=== PATIENT | male | born 1950 | race American Indian/Alaskan Native ===

== ENCOUNTER 2016-10-16 12:42 | Emergency (ER) | payer MEDICARE ==
--- NOTE | 2016-10-16 13:30 | Emergency Department Report ---
Chief Complaint: Abdominal Pain Stated Complaint: RIGHT FLANK PAIN Time Seen by Provider: 10/16/16 13:15 - HPI History of Present Illness: Patient is a 66-year-old male who was sent from [place] urgent [facility] to be evaluated for right-sided flank pain 1 week. Patient says about a week ago started experiencing right-sided flank pain, nonradiating, 6 out of 10 in intensity. Patient states mild to moderate right-sided quadrant abdominal pain. Patient denies fever/chills/nausea/vomiting/hematuria/dysuria/penile discharge. - ROS Review of Systems: As noted in HPI - Exam Vital Signs: Vital Signs 10/16/16 12:47 Temperature 97.6 F Pulse Rate 74 Respiratory 20 Rate Blood Pressure 154/92 O2 Sat by Pulse 100 Oximetry Physical Exam: GENERAL: Alert and oriented x3, no apparent distress, Normal Gait, atraumatic. HEAD: Head is normocephalic and a-traumatic. LUNGS: Symetrical with respiration, No wheezing, no rales or crackles, CTAB. HEART: S1, S2 present, regular rate and rhythm without murmur, no rubs, no gallops. ABDOMEN: No organomegaly was noted,Positive bowel sounds, soft, and non- distended. . Mild tenderness to palpation of the right middle to lower quadrant. Nontender to palpation on all other Quadrants, Rght sided CVA tenderness. SKIN: Warm and dry, No lesions, No ulceration or induration present. MSE screening note: Focused history and physical exam performed. Due to findings the following was ordered: ED Medical Decision Making - Medical Decision Making Labs ordered. CT abdomen ordered. Patient is in no acute or respiratory distress. Vital signs are stable. Patient waiting to be seen by ED physician. ED Disposition for MSE Condition: Stable
[2016-10-16 14:04] LABS: Basophils % (Auto) 0.1 % (0.0-1.8); Eosinophils % (Auto) 0.4 % (0.0-4.3); Hematocrit 37.4 % (35.5-45.6); Hemoglobin 12.1 gm/dl (11.8-15.2); Mean Corpuscular HGB Conc 32 % (32-34); Mean Corpuscular Hemoglobin 28 pg (28-32); Mean Corpuscular Volume 87 fl (84-94); Platelet Count 276 K/mm3 (140-440); Red Blood Count 4.32 M/mm3 (3.65-5.03); Red Cell Distribution Width 17.4 % (13.2-15.2); White Blood Count 5.8 K/mm3 (4.5-11.0)
[2016-10-16 14:13] LABS: Bilirubin,Urine NEG (Negative); Blood,Urine SM (Negative); Ketones,Urine NEG (Negative); Leukocyte Esterase,Urine NEG (Negative); Mucus,Urine FEW /HPF; Nitrite,Urine NEG (Negative); Urobilinogen,Urine < 2.0 mg/dL (<2.0)
[2016-10-16 14:18] LABS: Alanine Aminotransferase 9 units/L (7-56); Albumin 3.9 g/dL (3.9-5); Albumin/Globulin Ratio 0.8 %; Alkaline Phosphatase 76 units/L (35-129); Anion Gap 20 mmol/L; Bilirubin,Total 0.3 mg/dL (0.1-1.2); Blood Urea Nitrogen 8 mg/dL (9-20); Calcium 9.3 mg/dL (8.4-10.2); Carbon Dioxide 24 mmol/L (22-30); Chloride 100.1 mmol/L (98-107); Glucose 108 mg/dL (75-100); Potassium 4.2 mmol/L (3.6-5.0); Sodium 140 mmol/L (137-145); Total Protein 8.6 g/dL (6.3-8.2)
[2016-10-16 14:19] LABS: Amylase 55 units/L (27-131); Lipase 33 units/L (13-60)
--- NOTE | 2016-10-16 14:19 | Cat Scan Report ---
FINAL REPORT EXAM: CT ABDOMEN PELVIS WO CON HISTORY: abd/flank pain Right sided TECHNIQUE: CT examination of the ABDOMEN without contrast CT exanimation of the PELVIS without contrast PRIORS: None. FINDINGS: Patchy nonspecific parenchymal opacity is noted in the medial aspect of the right lower lobe. This may be scar or infiltrate. Nonspecific slight bronchiectasis in both lower lobes. Healed left rib fracture no evidence of acute fracture or focal osseous lesion. Degenerative change in the regional skeleton. Normal noncontrast appearance of the liver, gallbladder, adrenals, pancreas, and spleen. Normal caliber abdominal aorta with slight calcified atherosclerotic plaque. Normal caliber IVC. No renal calculus or hydronephrosis. No evidence of ureteral calculus or distention. Very small fat containing umbilical hernia. Small fat containing left inguinal hernia. Fat stranding and surgical clips suggest prior right inguinal hernia repair with scar. Normal-appearing stomach and duodenum. No small bowel distention in the abdomen and pelvis. Faint hazy opacity and fat stranding is present in the central mesenteric adipose tissue. Prominent lymph nodes in this region is suggestive of associated adenopathy. These may be reactive or neoplastic. No pelvic free fluid. Normal-appearing prostate and seminal vesicles. No rectal abnormality. Diffuse urinary bladder wall thickening without definite focal lesion. The bladder is relatively decompressed. Nonspecific slight lipomatous mural thickening in the ascending colon. Moderate sigmoid diverticulosis without definite evidence of acute inflammation. Slight diverticulosis in descending colon. No gross ascites, free air, or colonic distention. Normal-appearing cecum, terminal ileum, and appendix. IMPRESSION: Faint hazy opacity, fat stranding, and prominent lymph nodes is present in the central mesenteric adipose tissue. This finding is nonspecific and can be associated with a number of etiologies including edema, panniculitis and mesenteritis. Among many other possibilities, the differential includes Crohn's disease, ischemia, peritonitis, hypoalbuminemia, portal hypertension, or vasculitis. It can also be seen with lymphoma and leukemia. Patchy hazy opacity in the medial portion of the right lower lobe may be scar and/or infiltrate Nonspecific slight bronchiectasis in both lower lobes No evidence of urinary tract calculus or obstruction Small fat containing left inguinal hernia. Findings suggest previous right herniorrhaphy Descending and sigmoid diverticulosis Urinary bladder mural thickening may be artifact of decompression. The differential includes edema, inflammation, or cystitis Nonspecific slight lipomatous mural thickening in the ascending colon
[2016-10-16] MEDS ORDERED: ALUM-MAG HYDROX-SIMETH 200-200-20MG/5ML PO ONE (19:03)
[2016-10-16] MEDS ORDERED: PEPCID PO ONE (19:03)
[2016-10-16] MEDS ORDERED: BENTYL PO ONE (19:03)
--- NOTE | 2016-10-16 19:06 | Emergency Department Report ---
ED General Adult HPI - General Chief complaint: Abdominal Pain Stated complaint: RIGHT FLANK PAIN Time Seen by Provider: 10/16/16 18:43 Source: patient, RN notes reviewed, old records reviewed Mode of arrival: Ambulatory Limitations: No Limitations - History of Present Illness Initial comments: This is a 66-year-old male, previously unknown to me. He reports a past medical history of hypertension, diabetes, rheumatoid arthritis. He presents to the ER with abdominal pain. Abdominal pain is in the right upper quadrant, right flank and right lower quadrant. It has been present for one week. It has no exacerbating or relieving factors. There is no chest pain or shortness of breath. No irritative or obstructive urinary symptoms. No nausea, vomiting and diarrhea. Patient presented to the hospital in 2014 for similar complaints, had a CT scan of the abdomen and pelvis with numerous nonspecific findings, and was admitted to the hospital. He was seen by gastroenterology, and had a biopsy of lymph nodes. The biopsy reports was inconclusive, it does not appear that he is followed up. His pain is achy, he cannot describe exacerbating or relieving factors. No recent trips greater than 4 hours, no recent hospital admissions, no leg pain , no leg swelling. -: Gradual Location: back, abdomen Quality: aching Consistency: intermittent Improves with: none Worsens with: none Associated Symptoms: denies: confusion, chest pain, loss of appetite, malaise, nausea/vomiting, rash, seizure, shortness of breath, syncope, weakness - Related Data Home Medications Medication Instructions Recorded Confirmed Last Taken Levothyroxine [Synthroid] 25 mcg PO QAM 01/12/14 12/10/14 Unknown glipiZIDE [glipiZIDE XL] 2.5 mg PO DAILY 01/12/14 12/10/14 Unknown Previous Rx's Medication Instructions Recorded Last Taken Type amLODIPine [Norvasc] 10 mg PO DAILY #30 tab 11/13/14 Unknown Rx oxyCODONE /ACETAMINOPHEN [Percocet 1 tab PO Q8HR PRN #14 tablet 11/13/14 Unknown Rx 5/325 mg] Clopidogrel [Plavix] 75 mg PO QDAY #30 tablet 12/11/14 Unknown Rx ALBUTEROL Inhaler [ProAir HFA 2 puff IH QID PRN #1 inhalation 01/03/15 Unknown Rx Inhaler] Levofloxacin [Levaquin] 750 mg PO QDAY #10 tablet 01/03/15 Unknown Rx Prednisone [Prednisone 10 mg 10 mg PO .TAPER #1 tab.ds.pk 01/03/15 Unknown Rx (6-Day Pack, 21 Tabs)] traMADol [Ultram] 50 mg PO Q6HR PRN #20 tablet 01/03/15 Unknown Rx HYDROcodone/APAP 5-325 [[place] 1 each PO Q6HR PRN #20 tablet 10/14/15 Unknown Rx 5/325] traMADol [Ultram 50 MG tab] 50 mg PO Q6HR PRN #20 tablet 12/13/15 Unknown Rx Dicyclomine [Bentyl] 10 mg PO QID PRN #20 capsule 10/16/16 Unknown Rx Ondansetron [Zofran Odt] 4 mg PO QID PRN #20 tab.rapdis 10/16/16 Unknown Rx Allergies Allergy/AdvReac Type Severity Reaction Status Date / Time aspirin Allergy Hives Verified 10/16/16 12:50 ED Review of Systems ROS: Stated complaint: RIGHT FLANK PAIN Other details as noted in HPI Constitutional: denies: fever Eyes: denies: vision change ENT: denies: epistaxis Respiratory: denies: cough Gastrointestinal: abdominal pain Genitourinary: denies: testicular pain Musculoskeletal: back pain Skin: denies: lesions Neurological: denies: weakness Psychiatric: denies: anxiety ED Past Medical Hx - Past Medical History Hx Hypertension: Yes Hx CVA: No Hx Heart Attack/AMI: No Hx Congestive Heart Failure: No Hx Diabetes: Yes Hx Deep Vein Thrombosis: No Hx Pulmonary Embolism: No Hx GERD: No Hx Liver Disease: No Hx Renal Disease: No Hx of Cancer: Yes (PROSTATE) Hx Sickle Cell Disease: No Hx Arthritis: Yes (RHEUMATOID) Hx Headaches / Migraines: No Hx Seizures: Yes Hx Kidney Stones: No Hx Psychiatric Treatment: No Hx Asthma: No Hx COPD: No Hx Tuberculosis: No Hx Dementia: No Hx HIV: No Additional medical history: THYROID - Surgical History Hx Coronary Stent: No Hx Open Heart Surgery: No Hx Pacemaker: No Hx Internal Defibrillator: No Hx Cholecystectomy: No Hx Appendectomy: No Hx Breast Surgery: No Additional Surgical History: Prostate CA surgery 2009 - Social History Smoking Status: Former Smoker Substance Use Type: Alcohol - Medications Home Medications: Home Medications Medication Instructions Recorded Confirmed Last Taken Type Levothyroxine [Synthroid] 25 mcg PO QAM 04/26/14 03/24/15 Unknown History glipiZIDE [glipiZIDE XL] 2.5 mg PO DAILY 01/12/14 12/10/14 Unknown History amLODIPine [Norvasc] 10 mg PO DAILY #30 tab 11/13/14 12/10/14 Unknown Rx oxyCODONE /ACETAMINOPHEN [Percocet 1 tab PO Q8HR PRN #14 tablet 11/13/14 Unknown Rx 5/325 mg] Clopidogrel [Plavix] 75 mg PO QDAY #30 tablet 12/11/14 Unknown Rx ALBUTEROL Inhaler [ProAir HFA 2 puff IH QID PRN #1 inhalation 01/03/15 Unknown Rx Inhaler] Levofloxacin [Levaquin] 750 mg PO QDAY #10 tablet 01/03/15 Unknown Rx Prednisone [Prednisone 10 mg 10 mg PO .TAPER #1 tab.ds.pk 01/03/15 Unknown Rx (6-Day Pack, 21 Tabs)] traMADol [Ultram] 50 mg PO Q6HR PRN #20 tablet 01/03/15 Unknown Rx HYDROcodone/APAP 5-325 [[place] 1 each PO Q6HR PRN #20 tablet 10/14/15 Unknown Rx 5/325] traMADol [Ultram 50 MG tab] 50 mg PO Q6HR PRN #20 tablet 12/13/15 Unknown Rx Dicyclomine [Bentyl] 10 mg PO QID PRN #20 capsule 10/16/16 Unknown Rx Ondansetron [Zofran Odt] 4 mg PO QID PRN #20 tab.rapdis 10/16/16 Unknown Rx ED Physical Exam - General Limitations: No Limitations General appearance: alert, in no apparent distress - Head Head exam: Present: atraumatic, normocephalic - Eye Eye exam: Present: normal appearance, EOMI. Absent: nystagmus - ENT ENT exam: Present: normal exam, normal orophraynx, mucous membranes moist, normal external ear exam - Neck Neck exam: Present: normal inspection, full ROM. Absent: tenderness, meningismus - Respiratory Respiratory exam: Present: normal lung sounds bilaterally. Absent: respiratory distress, wheezes, rales, rhonchi, stridor, chest wall tenderness - Cardiovascular Cardiovascular Exam: Present: regular rate, normal rhythm, normal heart sounds. Absent: bradycardia, tachycardia, irregular rhythm, systolic murmur, diastolic murmur, rubs, gallop - GI/Abdominal GI/Abdominal exam: Present: soft, normal bowel sounds. Absent: distended, tenderness, guarding, rebound, rigid, pulsatile mass - Rectal Rectal exam: Present: deferred - exam: Present: normal inspection. Absent: testicular tenderness External exam: Present: normal external exam - Extremities Exam Extremities exam: Present: normal inspection, full ROM, normal capillary refill. Absent: tenderness, pedal edema, joint swelling, calf tenderness - Back Exam Back exam: Present: normal inspection, full ROM. Absent: tenderness, CVA tenderness (R), CVA tenderness (L), muscle spasm, paraspinal tenderness, vertebral tenderness - Neurological Exam Neurological exam: Present: alert, oriented X3, normal gait, other (Extraocular movements intact. Tongue midline. No facial droop. Facial sensation intact to light touch in the V1, V2, V3 distribution bilaterally. 5 and 5 strength in 4 extremities.. Sensation is intact to light touch in 4 extremities.). Absent : motor sensory deficit - Psychiatric Psychiatric exam: Present: normal affect, normal mood - Skin Skin exam: Present: warm, dry, intact, normal color. Absent: rash ED Course Vital Signs 10/16/16 10/16/16 10/16/16 12:47 18:56 21:08 Temperature 97.6 F Pulse Rate 74 63 71 Respiratory 20 18 16 Rate Blood Pressure 154/92 Blood Pressure 153/97 164/90 [Left] O2 Sat by Pulse 100 96 96 Oximetry - Reevaluation(s) Reevaluation #1: 10/16/16 20:39 Differential diagnosis: Colitis, diverticulitis, appendicitis, renal colic, malignancy, mesenteric adenitis, urinary tract infection Assessment and plan: 66-year-old male with acute on chronic abdominal pain. Patient had an extensive workup in 2015, and it appears that he has not followed up. He did have a biopsy which was inconclusive. His CT scan of the abdomen and pelvis today demonstrates numerous chronic findings, none of which appear to be acute. There are no pulmonary embolus or DVT risk factors, he is low risk by well's criteria, the appendix is within normal limits, and his urinalysis does not suggest urinary tract infection. He does not endorse cough , mucus production, chest pain or shortness of breath, therefore I think pneumonia is very unlikely. The patient is tolerating liquid feeds, has a soft benign abdomen, is afebrile with reassuring vital signs. I think vasculitis acutely, arterial occlusion, are very unlikely. The patient certainly needs to follow up with outpatient primary care, surgery for repeat biopsy, and possibly gastroenterology. I will discharge with pain medication, nausea medication, and instructed to follow up as an outpatient. Return precautions are extensively reviewed. ED Medical Decision Making - Lab Data Result diagrams: 10/16/16 13:28 10/16/16 13:28 Vital Signs 10/16/16 12:47 Temperature 97.6 F Pulse Rate 74 Respiratory 20 Rate Blood Pressure 154/92 O2 Sat by Pulse 100 Oximetry Lab Results 10/16/16 10/16/16 10/16/16 Range/Units 13:24 13:28 13:28 WBC 5.8 (4.5-11.0) K/mm3 RBC 4.32 (3.65-5.03) M/mm3 Hgb 12.1 (11.8-15.2) gm/dl Hct 37.4 (35.5-45.6) % MCV 87 (84-94) fl MCH 28 (28-32) pg MCHC 32 (32-34) % RDW 17.4 H (13.2-15.2) % Plt Count 276 (140-440) K/mm3 Lymph % (Auto) 24.5 (13.4-35.0) % [place] % (Auto) 10.8 H (0.0-7.3) % Eos % (Auto) 0.4 (0.0-4.3) % Baso % (Auto) 0.1 (0.0-1.8) % Lymph # 1.4 (1.2-5.4) K/mm3 [place] # 0.6 (0.0-0.8) K/mm3 Eos # 0.0 (0.0-0.4) K/mm3 Baso # 0.0 (0.0-0.1) K/mm3 Seg Neutrophils % 64.2 (40.0-70.0) % Seg Neutrophils # 3.7 (1.8-7.7) K/mm3 Sodium 140 (137-145) mmol/L Potassium 4.2 (3.6-5.0) mmol/L Chloride 100.1 (98-107) mmol/L Carbon Dioxide 24 (22-30) mmol/L Anion Gap 20 mmol/L BUN 8 L (9-20) mg/dL Creatinine 0.8 (0.8-1.5) mg/dL Estimated GFR > 60 ml/min BUN/Creatinine Ratio 10.00 % Glucose 108 H (75-100) mg/dL Calcium 9.3 (8.4-10.2) mg/dL Total Bilirubin 0.3 (0.1-1.2) mg/dL AST 17 (5-40) units/L ALT 9 (7-56) units/L Alkaline Phosphatase 76 (35-129) units/L Total Protein 8.6 H (6.3-8.2) g/dL Albumin 3.9 (3.9-5) g/dL Albumin/Globulin Ratio 0.8 % Amylase (27-131) units/L Lipase (13-60) units/L Urine Color Yellow (Yellow) Urine Turbidity Clear (Clear) Urine pH 5.0 (5.0-7.0) Ur Specific [place] 1.018 (1.003-1.030) Urine Protein 30 mg/dl (Negative) mg/dL Urine Glucose (UA) Neg (Negative) mg/dL Urine Ketones Neg (Negative) mg/dL Urine Blood Sm (Negative) Urine Nitrite Neg (Negative) Urine Bilirubin Neg (Negative) Urine Urobilinogen < 2.0 (<2.0) mg/dL Ur Leukocyte Esterase Neg (Negative) Urine WBC (Auto) 1.0 (0.0-6.0) /HPF Urine RBC (Auto) 3.0 (0.0-6.0) /HPF U Epithel Cells (Auto) 1.0 (0-13.0) /HPF Urine Mucus Few /HPF 10/16/16 Range/Units 13:34 WBC (4.5-11.0) K/mm3 RBC (3.65-5.03) M/mm3 Hgb (11.8-15.2) gm/dl Hct (35.5-45.6) % MCV (84-94) fl MCH (28-32) pg MCHC (32-34) % RDW (13.2-15.2) % Plt Count (140-440) K/mm3 Lymph % (Auto) (13.4-35.0) % [place] % (Auto) (0.0-7.3) % Eos % (Auto) (0.0-4.3) % Baso % (Auto) (0.0-1.8) % Lymph # (1.2-5.4) K/mm3 [place] # (0.0-0.8) K/mm3 Eos # (0.0-0.4) K/mm3 Baso # (0.0-0.1) K/mm3 Seg Neutrophils % (40.0-70.0) % Seg Neutrophils # (1.8-7.7) K/mm3 Sodium (137-145) mmol/L Potassium (3.6-5.0) mmol/L Chloride (98-107) mmol/L Carbon Dioxide (22-30) mmol/L Anion Gap mmol/L BUN (9-20) mg/dL Creatinine (0.8-1.5) mg/dL Estimated GFR ml/min BUN/Creatinine Ratio % Glucose (75-100) mg/dL Calcium (8.4-10.2) mg/dL Total Bilirubin (0.1-1.2) mg/dL AST (5-40) units/L ALT (7-56) units/L Alkaline Phosphatase (35-129) units/L Total Protein (6.3-8.2) g/dL Albumin (3.9-5) g/dL Albumin/Globulin Ratio % Amylase 55 (27-131) units/L Lipase 33 (13-60) units/L Urine Color (Yellow) Urine Turbidity (Clear) Urine pH (5.0-7.0) Ur Specific [place] (1.003-1.030) Urine Protein (Negative) mg/dL Urine Glucose (UA) (Negative) mg/dL Urine Ketones (Negative) mg/dL Urine Blood (Negative) Urine Nitrite (Negative) Urine Bilirubin (Negative) Urine Urobilinogen (<2.0) mg/dL Ur Leukocyte Esterase (Negative) Urine WBC (Auto) (0.0-6.0) /HPF Urine RBC (Auto) (0.0-6.0) /HPF U Epithel Cells (Auto) (0-13.0) /HPF Urine Mucus /HPF - Radiology Data Radiology results: report reviewed, image reviewed CT scan of the abdomen and pelvis Central mesenteric fat stranding and adenopathy is unchanged from comparison. May be scar or chronic low-grade inflammation. Right lower lobe patchy opacities less prominent than on comparison exam, in the region of prior consolidation, and may be a residual scar. Bilateral lower lobe bronchiectasis is unchanged, fat containing left inguinal hernia is unchanged. Diverticulosis is unchanged, urinary bladder mural thickening is currently more prominent but the urinary bladder is less distended. Appendix is within normal limits. No renal calculus is noted. Critical care attestation.: If time is entered above; I have spent that time in minutes in the direct care of this critically ill patient, excluding procedure time. ED Disposition Clinical Impression: Abdominal pain Qualifiers: Abdominal location: generalized Qualified Code(s): R10.84 - Generalized abdominal pain Disposition: DISCHARGED TO HOME OR SELFCARE Is pt being admited?: No Does the pt Need Aspirin: No Condition: Stable Instructions: Abdominal Pain (ED) Additional Instructions: CT scan of the abdomen and pelvis did not demonstrate any acute finding that is new or different when compared to prior CAT scan from 2015. Take the pain medication and nausea medication as directed. I do recommend that you follow- up with outpatient general surgeon or primary care doctor for further management and evaluation. A biopsy that was performed in 2015 was inconclusive. Therefore, you may benefit from recurrent/repeat biopsy. Dr. Andres is the interventional surgeon who performed her biopsy in 2015, I recommend that you follow up with him within the next month for consideration for repeat biopsy. In addition, I recommend he follow up with either primary care, gastroenterology , or Gen. surgery to coordinate outpatient care. follow up within the next [address] Kirk Jauregui is a local primary care doctor. Dr. Beach is a local email deployment specialist. Dr. Lu is a local general surgeon. It is very important to closely follow up coordinate outpatient biopsy and further management to exclude tumor/cancer/malignancy. Please return to the ER right away with new pain, worsened pain, migration of pain, fevers or chills, nausea or vomiting, inability to tolerate liquid feeds. Prescriptions: Dicyclomine [Bentyl] 10 mg PO QID PRN #20 capsule PRN Reason: Pain Ondansetron [Zofran Odt] 4 mg PO QID PRN #20 tab.rapdis PRN Reason: Nausea Referrals: PRIMARY CARE, [Primary Care Provider] - 3-5 Days KIRK JAUREGUI MD [Staff Physician] - 3-5 Days COLIN ANDRES MD [Staff Physician] - 3-5 Days JOAN BEACH MD [Staff Physician] - 3-5 Days SAVANNAH LU MD [Staff Physician] - 3-5 Days
[2016-10-16 21:09] VITALS: BP 164/90
== END 2016-10-16 21:11 | disposition home or self-care (01) ==
LOC: ED 12:42
DX: R10.84 Generalized abdominal pain (principal); I10 Essential (primary) hypertension; E11.9 Type 2 diabetes mellitus without complications; M19.90 Unspecified osteoarthritis, unspecified site; Z87.891 Personal history of nicotine dependence; Z85.46 Personal history of malignant neoplasm of prostate; Z88.6 Allergy status to analgesic agent
CPT/HCPCS: 36415; 74176; 80053; 81001; 82150; 83690; 85025

== ENCOUNTER 2017-10-16 07:01 | Emergency (ER) | payer MEDICARE ==
[2017-10-16 07:50] VITALS: BP 159/93
== END 2017-10-16 11:00 | disposition left against medical advice (07) ==
LOC: ED 07:01
DX: M54.9 Dorsalgia, unspecified (principal); Z53.21 Procedure and treatment not carried out due to patient leaving prior to being seen by health care provider